=== PATIENT | female | born 1960 | race Caucasian/White ===

== ENCOUNTER → 2016-11-14 | Day surgery (SDC) | payer BC ==
--- NOTE | 2016-11-15 15:31 | PATH ---
Surgical Pathology Report Patient Name: BALJEET ANAND [facility]. Rec. #: [id number] /Age/Gender: 1960 (Age: 56) / F Account: [id number] Location: [facility] Taken: 11/14/2016 Received: 11/14/2016 Reported: 11/15/2016 Physicians: Franki Mooney M.D. Specimen(s) Received A: RIGHT BREAST SPECIMEN WITH CALCIFICATIONS B: RIGHT BREAST SPECIMEN WITHOUT CALCIFICATIONS Clinical History Nonpalpable lesion Mammographic findings: microcalcification, suspicious Final Diagnosis A. 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 (SEE NOTE) B. 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 NOTE: Myoepithelial immunohistochemical markers (SMM-HC and p63; performed on specimen A) demonstrate the absence of myoepithelial cells in the foci of microinvasive carcinoma. This finding supports the diagnosis. Results of Estrogen Receptor (ER) and Progesterone Receptor (AR) studies performed on block A at [facility] are as follows: ER (clone [id number] mouse monoclonal antibody by [employer]):100 % nuclear staining with strong intensity (Positive). AR (clone16 mouse monoclonal antibody by [employer]) : > 90 % nuclear staining with strong intensity (Positive). Results of Her2 IHC and Ki67 studies will be reported separately in an addendum. Electronically Signed Kristie Pierson M.D. Addendum Reported: 11/18/2016 Addendum Diagnosis Results of Her2 (IHC) & Ki-67 studies performed on block A at [place], [place] ([id number]) are as follows: Her2 IHC (EP3 from [employer], formerly known as [id number], using [employer] Polymer Refine detection kit): 1+ (Negative). Ki-67: 5-10% (Low). Positive and negative controls (internal if applicable) show appropriate results. Kristie Pierson M.D. Gross Description A.Received in formalin, labeled "right breast with calcifications," is a 1.8 x 1.6 x 0.3 cm aggregate of knowles-yellow fragments of fibroadipose tissue. The formalin is filtered and the specimen is entirely submitted in one cassette. B. Received in formalin, labeled "right breast without calcifications," is a 1.9 x 1.8 x 0.3 cm aggregate of multiple knowles-yellow, irregular to cylindrical portions of fibroadipose tissue. The formalin is filtered and the specimen is entirely submitted in one cassette. Time to formalin fixation: 5 minutes Total formalin fixation time: Approximately 7 hours. 11/14/2016 saudi11/14/2016
== END | disposition home or self-care (01) ==
LOC: FMAMMOTONE 10:22
PROVIDERS: ATTEND Surgery Surgical Oncology
PROC: 0HBT3ZX Excision of Right Breast, Percutaneous Approach, Diagnostic (ICD-10-PCS; principal; 2016-11-14)
DX: C50.811 Malignant neoplasm of overlapping sites of right female breast (principal); D05.91 Unspecified type of carcinoma in situ of right breast; N64.89 Other specified disorders of breast
CPT/HCPCS: 19081; 87899; 88305-TC; 88342-TC; A4648